=== PATIENT | male | born 1990 | race African-American/Black ===

== ENCOUNTER 2017-04-01 23:40 | Emergency (ER) | payer BC, OTHER ==
[~2017-04-01] VITALS: Ht 188 cm; Wt 79.4 kg
[~2017-04-01 23:40] MED LIST: AMOXICILLIN 50500 M1 PO; NOHOMEMEDICATIONS; NORCO 5-325 TA1 EACH PO
[2017-04-02 02:07] LABS: ABSOLUTE NEUTROPHILS 8.4 thou/uL (1.4-8.2); BASOPHILS 0.3 % (0.0-2.0); HEMATOCRIT 37.8 % (42.0-52.0); HEMOGLOBIN 12.9 gm/dL (14.0-18.0); LYMPHOCYTES 13.7 % (24.0-44.0); MCH 33.2 pg (26.0-34.0); MCHC 34.2 g/dL (28.0-37.0); MCV 97.1 fL (80.0-100.0); MONOCYTES 9.9 % (1.0-8.0); PLATELET COUNT 169 thou/uL (150-400); POLYS 74.1 % (36.0-66.0); RBC 3.89 mil/uL (4.50-6.00); RDW 12.5 % (10.5-14.5); WBC 11.4 thou/uL (4.0-11.0)
[2017-04-02 02:10] LABS: MANUAL DIFF NO
[2017-04-02 02:12] LABS: CALCIUM 9.4 mg/dL (8.5-10.1); CREATININE 0.9 mg/dL (0.7-1.3); POTASSIUM 3.8 mmol/L (3.5-5.1)
[2017-04-02] MEDS ORDERED: CLEOCIN HCL150 MG PO (03:08)
[2017-04-02] MEDS ORDERED: NAPROSYN500 MG PO (03:08)
[2017-04-02 03:35] VITALS: BP 132/68
== END 2017-04-02 03:10 | disposition home or self-care (01) ==
LOC: ER 23:40
PROVIDERS: Emergency Medicine
DX: J36 Peritonsillar abscess (principal); J45.909 Unspecified asthma, uncomplicated; F17.210 Nicotine dependence, cigarettes, uncomplicated; F10.99 Alcohol use, unspecified with unspecified alcohol-induced disorder; F12.10 Cannabis abuse, uncomplicated; Z98.890 Other specified postprocedural states

== ENCOUNTER 2017-04-17 19:23 | Inpatient (IN) | payer BC, OTHER ==
[~2017-04-17] VITALS: Ht 188 cm; Wt 77.1 kg
--- NOTE | ~2017-04-17 | EKG ---
[address] [place] [address] ELECTROCARDIOGRAM REPORT Name: LUTHER GONZALEZSTAR Kasper Room #: 241-P ADM IN M.R.#: [id number] Admission: 04/17/17 Attend Phys: Klever Rodriguez MD Discharge: Date of : 86 Report #: [id number] THIS REPORT FOR: //name// [facility] ED Test Date: 2017-04-17 Test Time: 19:40:10 Pat Name: CIERRA GONZALEZ Department: Room: 241 Gender: M Dermatology Physician: NORA : [id number] Requested By: Doreen Beavers Order Number: [id number] MD: Aditya Castro Measurements Intervals [place] Rate: 82 P: -2 VT: 176 QRS: -10 QRSD: 97 T: 7 QT: 365 QTc: 427 Interpretive Statements Sinus rhythm ST elev, probable normal early repol pattern versus pericarditis No previous ECG available for comparison Electronically Signed On 04-18-2017 9:05:35 CDT by Aditya Castro [email or web address] <ELECTRONICALLY SIGNED> By: Aditya Castro MD, [facility] 04/18/17904 39 39 Aditya Castro MD, FACC /EPI
[2017-04-17 19:23] VITALS: BP 104/62
[~2017-04-17 19:23] MED LIST changes: +CLEOCIN HCL150 MG PO; +NAPROSYN500 MG PO
[2017-04-17 19:40] LABS: BASOPHILS 0.7 % (0.0-2.0); EOSINOPHILS 1.6 % (0.0-3.0); HEMATOCRIT 40.9 % (42.0-52.0); HEMOGLOBIN 13.9 gm/dL (14.0-18.0); LYMPHOCYTES 36.2 % (24.0-44.0); MCH 33.3 pg (26.0-34.0); MCHC 33.9 g/dL (28.0-37.0); MONOCYTES 9.7 % (1.0-8.0); PLATELET COUNT 141 thou/uL (150-400); POLYS 51.8 % (36.0-66.0); RBC 4.18 mil/uL (4.50-6.00); RDW 12.7 % (10.5-14.5); WBC 3.8 thou/uL (4.0-11.0)
[2017-04-17 19:41] LABS: MANUAL DIFF NO
[2017-04-17 19:51] LABS: ANION GAP 8 mmol/L (7-16); BUN 7 mg/dL (7-18); CALCIUM 9.3 mg/dL (8.5-10.1); CHLORIDE 106 mmol/L (98-107); CO2 30 mmol/L (21-32); CREATININE 0.9 mg/dL (0.7-1.3); GLUCOSE 93 mg/dL (74-106); POTASSIUM 3.5 mmol/L (3.5-5.1); SODIUM 144 mmol/L (136-145)
[2017-04-17 19:57] LABS: ALBUMIN 3.9 g/dL (3.4-5.0); ALKALINE PHOSPHATASE 60 U/L (46-116); DIRECT BILIRUBIN 0.2 mg/dL (<0.1-0.3); SALICYLATE < 2.8 mg/dL (2.8-20.0); SGOT 21 U/L (15-37); SGPT 26 U/L (30-65); TOTAL PROTEIN 7.4 g/dL (6.4-8.2)
[2017-04-17 19:57] LABS: AMP/METHAMP Negative (Negative); BARBITURATES Negative (Negative); BENZODIAZEPINES POSITIVE (Negative); COCAINE Negative (Negative); METHADONE Negative (Negative); OPIATES Negative (Negative); PCP Negative (Negative); THC POSITIVE (Negative)
[2017-04-17 20:15] LABS: ACETAMINOPHEN < 2 ug/mL (10-30)
[2017-04-18] VITALS (26 sets, daily range): BP systolic 68–129; BP diastolic 52–91
[2017-04-18 06:19] LABS: HEMATOCRIT 40.5 % (42.0-52.0); HEMOGLOBIN 13.7 gm/dL (14.0-18.0); MCH 33.5 pg (26.0-34.0); MCHC 33.9 g/dL (28.0-37.0); MCV 98.9 fL (80.0-100.0); RBC 4.09 mil/uL (4.50-6.00); RDW 12.5 % (10.5-14.5); WBC 5.7 thou/uL (4.0-11.0)
[2017-04-18 06:29] LABS: CALCIUM 9.2 mg/dL (8.5-10.1); CREATININE 0.9 mg/dL (0.7-1.3); POTASSIUM 3.8 mmol/L (3.5-5.1)
[2017-04-19] VITALS (33 sets, daily range): BP systolic 65–130; BP diastolic 11–84
[2017-04-19 02:49] LABS: HEMATOCRIT 38.6 % (42.0-52.0); HEMOGLOBIN 12.9 gm/dL (14.0-18.0); MCH 32.8 pg (26.0-34.0); MCHC 33.3 g/dL (28.0-37.0); MCV 98.5 fL (80.0-100.0); RBC 3.91 mil/uL (4.50-6.00); RDW 12.4 % (10.5-14.5); WBC 4.2 thou/uL (4.0-11.0)
[2017-04-19 02:55] LABS: CREATININE 0.9 mg/dL (0.7-1.3); POTASSIUM 3.5 mmol/L (3.5-5.1)
== END 2017-04-19 21:50 | DRG 918 ==
LOC: ER 19:23 → EDBD 19:23 → ICU 21:01 → EROBS 21:01 → ICU 04-18 00:23
PROVIDERS: Emergency Medicine; Nurse Practitioner Family; Psychiatry & Neurology Psychiatry
DX: T42.4X2A Poisoning by benzodiazepines, intentional self-harm, initial encounter (principal); J45.909 Unspecified asthma, uncomplicated; F39 Unspecified mood [affective] disorder; T40.7X2A Poisoning by cannabis (derivatives), intentional self-harm, initial encounter; Y92.89 Other specified places as the place of occurrence of the external cause; Z91.5 Personal history of self-harm; Z79.899 Other long term (current) drug therapy
CPT/HCPCS: 10078